=== PATIENT | male | born 1960 | race Caucasian/White ===

== ENCOUNTER 2021-07-07 10:38 | Outpatient (CLI) | payer OTHER, SELFPAY ==
[2021-07-07 10:49] LABS: Basophils Absolute Auto 0.04 K/mm3 (0.00-0.10); Basophils Percent Auto 0.7 % (0.0-1.0); Eosinophils Absolute Auto 0.31 K/mm3 (0.02-0.50); Eosinophils Percent Auto 5.7 % (1.0-6.0); Hemoglobin 15.7 g/dL (14.0-18.0); Immature Granulocyte Absolute 0.03 K/mm3 (0.00-0.00); Immature Granulocyte Percent A 0.5 % (0.0-0.0); Lymphocytes Absolute Auto 1.32 K/mm3 (1.10-4.50); Lymphocytes Percent Auto 24.1 % (18.0-42.0); Mean Corpuscular HGB Conc 33.4 g/dL (32.0-36.0); Mean Corpuscular Hemoglobin 32.2 pg (27.0-31.0); Mean Corpuscular Volume 96.3 fL (78.0-102.0); Mean Platelet Volume 10.2 fl (8.7-11.0); Monocytes Absolute Auto 0.39 K/mm3 (0.10-0.90); Monocytes Percent Auto 7.1 % (2.0-11.0); Neutrophils Absolute Auto 3.4 K/mm3 (1.7-7.2); Neutrophils Percent Auto 61.9 % (50.0-70.0); Platelet Count Result 204 K/mm3 (150-420); Red Blood Count 4.88 M/mm3 (4.70-6.10); Red Cell Distribution Width 11.9 % (11.6-14.4); White Blood Count 5.5 K/mm3 (4.8-10.8)
[2021-07-07 11:54] LABS: Alanine Aminotransferase 48 U/L (16-63); Albumin Level 4.2 g/dL (3.4-5.0); Alkaline Phosphatase 42 U/L (46-116); Anion Gap 10 mmol/L (8-16); Aspartate Amino Transferase 19 U/L (15-37); Bilirubin,Total 0.4 mg/dL (0.00-1.00); Blood Urea Nitrogen 21 mg/dL (7-18); Calcium 9.1 mg/dL (8.5-10.1); Carbon Dioxide 28 mmol/L (21-32); Chloride 107 mmol/L (98-108); Cholesterol 264 mg/dL (0-200); Estimated Glomerular Filt Rate > 60; Glucose 113 mg/dL (70-99); HDL Direct 33 mg/dL (40-60); LDL Cholesterol Calculated 165 mg/dL (<130); Osmolality Calculated 304 mOsm/kg (285-295); Potassium 4.2 mmol/L (3.5-5.1); Sodium 145 mmol/L (136-145); Total Protein 6.8 g/dL (6.4-8.2); Triglycerides 329 mg/dL (0-150)
== END 2021-07-07 10:39 | disposition home or self-care (01) ==
LOC: CHSLAB 10:41
PROVIDERS: PCP Nurse Practitioner Family; Visit Provider Nurse Practitioner Family
DX: E78.5 Hyperlipidemia, unspecified (principal)
CPT/HCPCS: 36415; 80053; 80061; 85025

== ENCOUNTER 2022-03-03 14:39 | Outpatient (CLI) | payer OTHER, SELFPAY ==
--- NOTE | ~2022-03-03 | XR_ITS ---
EXAMINATION: XR thoracic spine 3V DATE: 03/03/2022 15:04 INDICATION: Upper back pain TECHNIQUE: AP, lateral and lateral swimmer's views of the thoracic spine were obtained. COMPARISON: None. FINDINGS: Bone alignment is normal. There is no fracture. There is mild loss of intervertebral disc s pace height at multiple levels in the thoracic spine. IMPRESSION: 1. Mild thoracic spondylosis without acute findings. Reviewed, dictated and finalized at location F.
== END 2022-03-03 14:40 | disposition home or self-care (01) ==
LOC: CHSIMG 14:42
PROVIDERS: PCP Family Medicine; Visit Provider Family Medicine
DX: M54.9 Dorsalgia, unspecified (principal)
CPT/HCPCS: 72072

== ENCOUNTER 2022-03-09 14:52 | Outpatient (RCR) | payer OTHER, SELFPAY ==
--- NOTE | 2022-03-09 16:00 | PTOPEVAL ---
Thank you for referring Niranjan Gallegos to [facility].? The patient is scheduled to be seen for therapy? __2__x/week for 10 visits. Please review, sign, date and return this plan of care MIRA. I agree with and certify that the following plan of care is medically necessary. Referring Physician Date Admitting Provider: Attending Provider: Ken Dumont DO Referring Provider: *PT Outpatient Evaluation Start: 03/09/22 15:04 Freq: Status: Active Protocol: Document 03/09/22 15:05 KALLIE (Rec: 03/09/22 15:54 KALLIE [email or web address]) Therapy Assessment Status Assessment Status Assessment Status Evaluation Evaluation Information Problem Diagnosis dorsalgia, upper back pain Onset 01/31/22 Subjective Information Pt. reports that he developed Query Text:As Reported By Patient/ worsening upper back pain over Family the past month. 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 He states that pain intermittent and is located between the shoulder blades. He reports that he is able to sleep without complication. He reports that he does take Aleve daily to assist with pain. He reports that pain is worse with lifting and bending activities. Pain Assessment Pain Scale Pain Scale Used Numeric (1 - 10) Self Report Pain Assessment Upper Back Reported Pain Level 1 Pain Description Aching Lowest Pain Intensity 1 Greatest Pain Intensity 8 Pain Score Pain Score 1: Self Report Interventions Used Interventions Used By Clinicians Electrical Stimulation, Exercise,Heat Cervical and Lumbar ROM Cervical ROM Cervical Flexion (0-60) 50 Query Text:Active in Degrees Cervical Extension (0-70) 60 Query Text:Active in Degrees Cervical Lateral Flexion Right (0-50) 35 Query Text:Active in Degrees Cervical Lateral Flexion Left (0-50) 35 Query Text:Active in Degrees Cervical Rotation Right (0-90) 70 Query Text:Active in Degrees Cervical Rotation Left (0-90) 75 Query Text:Active in Degrees Upper Extremity Muscle Strength Testing General Upper Extremity Strength Gross Upper Extremity Strength Comments -right shoulder flexion 5/5 -left shoulder flexion 4/5 -right shoulder ER 5/5 -left shoulder ER 4/5 -bilateral mi
== END 2022-03-16 09:24 | disposition home or self-care (01) ==
LOC: CHSPT 14:52
PROVIDERS: PCP Family Medicine; Visit Provider Family Medicine
DX: M54.9 Dorsalgia, unspecified (principal)
CPT/HCPCS: 97014; 97110; 97161; G0283

== ENCOUNTER 2023-05-04 15:11 | Outpatient (CLI) | payer OTHER, SELFPAY ==
[2023-05-04 15:24] LABS: Basophils Absolute Auto 0.04 K/mm3 (0.00-0.10); Basophils Percent Auto 0.6 % (0.0-1.0); Eosinophils Absolute Auto 0.64 K/mm3 (0.02-0.50); Eosinophils Percent Auto 9.5 % (1.0-6.0); Hematocrit 44.6 % (40.0-54.0); Hemoglobin 15.1 g/dL (14.0-18.0); Immature Granulocyte Absolute 0.02 K/mm3 (0.00-0.00); Immature Granulocyte Percent A 0.3 % (0.0-0.0); Lymphocytes Absolute Auto 1.69 K/mm3 (1.10-4.50); Mean Corpuscular HGB Conc 33.9 g/dL (32.0-36.0); Mean Corpuscular Hemoglobin 32.4 pg (27.0-31.0); Mean Corpuscular Volume 95.7 fL (78.0-102.0); Mean Platelet Volume 10.4 fl (8.7-11.0); Monocytes Absolute Auto 0.58 K/mm3 (0.10-0.90); Monocytes Percent Auto 8.6 % (2.0-11.0); Neutrophils Absolute Auto 3.8 K/mm3 (1.7-7.2); Platelet Count Result 211 K/mm3 (150-420); Red Blood Count 4.66 M/mm3 (4.70-6.10); Red Cell Distribution Width 11.9 % (11.6-14.4); White Blood Count 6.8 K/mm3 (4.8-10.8)
[2023-05-04 15:51] LABS: Alanine Aminotransferase 37 U/L (16-63); Albumin Level 4.1 g/dL (3.4-5.0); Alkaline Phosphatase 37 U/L (46-116); Anion Gap 11 mmol/L (8-16); Aspartate Amino Transferase 22 U/L (15-37); Bilirubin,Total 0.5 mg/dL (0.00-1.00); Blood Urea Nitrogen 27 mg/dL (7-18); Calcium 9.2 mg/dL (8.5-10.1); Carbon Dioxide 26 mmol/L (21-32); Chloride 105 mmol/L (98-108); Cholesterol 263 mg/dL (0-200); Estimated Glomerular Filt Rate > 60; Glucose 102 mg/dL (70-99); HDL Direct 38 mg/dL (40-60); LDL Cholesterol Calculated 160 mg/dL (<130); Osmolality Calculated 299 mOsm/kg (285-295); Potassium 4.2 mmol/L (3.5-5.1); Sodium 142 mmol/L (136-145); Total Protein 6.7 g/dL (6.4-8.2); Triglycerides 324 mg/dL (0-150)
[2023-05-04 16:18] LABS: Occult Blood Negative (Negative)
== END 2023-05-04 15:12 | disposition home or self-care (01) ==
LOC: CHSLAB 15:13
PROVIDERS: PCP Family Medicine; Visit Provider Family Medicine
DX: R19.7 Diarrhea, unspecified (principal); E78.5 Hyperlipidemia, unspecified
CPT/HCPCS: 36415; 80053; 80061; 82272; 85025

== ENCOUNTER 2024-12-23 08:12 | Emergency (ER) | payer BC, SELFPAY ==
--- NOTE | ~2024-12-23 | XR_ITS ---
EXAMINATION: XR wrist LT w scaphoid DATE: 12/23/2024 08:35 INDICATION: Left wrist pain TECHNIQUE: Posteroanterior, ulnar deviation, oblique, and lateral views of the left wrist were obtain ed. COMPARISON: none FINDINGS: 1 mm ulnar positive variance. Bone alignment is otherwise normal. No fracture. Mild osteoarthritis at the triscaphe and first carpal metacarpal joint. There is a subtle lucency at the ulnar side of the proximal articular surface of the lunate suggesting ulnocarpal impaction. Soft tissues are unremarkab le. IMPRESSION: 1. 1 mm ulnar positive variance with cystic change along the proximal articular surface of the lunate suggestive of ulnocarpal impaction. 2. Mild osteoarthritis at the triscaphe and first carpal metacarpal joint. Reviewed, dictated and finalized at location A. D PREVENTION ANALYST
--- OUTSIDE RECORDS SUMMARY | 2024-12-23 08:16 | XMS_ITS | Clinical Summary ---
Author Organization [facility] Address [address] [place] [id number] Care Team Providers Care Shareholder Name Role Phone Unavailable Primary Care Provider Unavailabl e Social History Tobacco Use Types Packs/Day Years Used Date Smoking Tobacco: Never Sex and Gender Information Value Date Recorded Sex Assigned at Not on file Legal Sex Male 6:51 PM CDT Gender Identity Not on file Sexual Orientation Not on file Last Filed Vital Signs Vital Sign Reading Time Taken Comments Blood Pressure 120/74 01/17/2015 1:45 PM AED TRAINER Pulse 80 01/17/2015 1:44 PM AED TRAINER Temperature - - Respiratory Rate 18 01/17/2015 1:44 PM AED TRAINER Oxygen Saturation - - Inhaled Oxygen Concentration - - Weight 80.7 kg (178 lb) 01/17/2015 1:44 PM AED TRAINER Height 167.6 cm (5' 6 ) 01/17/2015 1:44 PM AED TRAINER Body Mass Index 28.73 01/17/2015 1:44 PM AED TRAINER Plan of Treatment Health Maintenance Due Date Last Done Comments Colorectal Cancer Screening Colonoscopy (10 Years) 1959 Hepatitis C 1977 DTaP, Tdap and Td Vaccines ( 1 - Tdap) 1978 Zoster Vaccines (1 of 2) 2009 Pneumococcal Vaccine: 65+ Ye ars (1 of 1 - PCV) 2024 COVID-19 Vaccine ( - 2023-2 5 season) 2024 Influenza Adult (#1) 2024 RSV Immunization or 60+ Years (1 - 1-dose 75+ series) 2034 Meningococcal B Vaccine Aged Out No l onger eligible based on patient's age to complete this topic Meningococcal Vaccine Aged Out No kiara brett eligible based on patient's age to complete this topic Pneumococcal Vaccine: Pediat rics (0 to 5 Years) and At-Risk Patients (6 to 64 Years) Aged Out No longer eligible b ased on patient's age to complete this topic RSV Immunizations Under 20 Months Aged Out No longer eligible based on patient's age to complete this topic
[2024-12-23 08:18] VITALS: BP 147/90; PULSE 74; RESP 18; TEMP 36; O2SAT 98
--- NOTE | 2024-12-23 08:23 | ED_ITS ---
HPI - General Adult General Chief complaint: Extremity Injury, Upper Stated complaint: upper extremity injury Time Seen by Provider: 12/23/24 08:21 History of Present Illness HPI narrative: Niranjan is a 64M with a PMH of SONYA, and HLD that presented to the ED with pain in his left wirst. He has had it for weeks but it became worse last night folding clothes. No fall, injury or trauma. Related Data Allergies Allergy/AdvReac Type Severity Reaction Status Date / Time No Known Allergies Allergy Verified 05/04/23 14:53 Review of Systems 2 Review of Systems: All systems reviewed & are unremarkable except as noted in HPI and below PMFSH Surgical History Surgical History H/O shoulder surgery right History of hip surgery right Previous back surgery fusion in lower back Family History Family History Mother Patient's mother is in good health Grandparent Acute myocardial infarction, Onset Age: 72 Family history of malignant neoplasm Father Family history of lung cancer Family history of malignant neoplasm of urinary bladder Family history of congestive heart failure Social History Social History Smoking status: Former smoker Alcohol intake: current Alcohol use details: social Substance use: never Substance use type: does not use Lack of Transportation: No Lack of Food: Never True Current Housing: I Have Housing Concerned About Future Housing: No Difficulty Paying Gas/Electric Bills: No Difficulty Paying for Meds: No Currently Unemployed: No Education: High School Diploma/GED Difficulty w/ Childcare or Family Care: No Living arrangements: with family Additional living arrangements comments: Occupation/Education: occupation 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 Gender identity (if verbalized by the patient): Male Exam 2 Const: General: cooperative, healthy appearing, comfortable, no acute distress, well developed, alert, awake and Physically active O rientation/consciousness: oriented to person, oriented to place and oriented to time HENMT: Head: normal to inspection, normocephalic and atraumatic Ears: h earing grossly normal bilaterally and external ears normal Face/Nose/Sinus: N ormal external nose present Eyes: General: appearance normal, both eyes and all related structures P eriorbital: periorbital findings normal Sclera: sclerae normal Pupils: E qual, round and reactive pupils present Neck: Neck: normal visual inspection Chest: Chest palpation & inspection: normal inspection of the chest Resp: Effort & Inspection: normal respiratory effort, able to speak in complete sentences and no respiratory distress Skin: General skin exam: normal color and no rashes or lesions noted Neuro: General: oriented to person, oriented to place and oriented to time Cranial nerves: Yes Equal, round and reactive pupils present Extrem: General: normal to inspection Other: decreased ROM in the left wrist and TTP Course Course Emergency Course: EXAMINATION: XR wrist LT w scaphoid DATE: 12/23/2024 08:35 INDICATION: Left wrist pain TECHNIQUE: Posteroanterior, ulnar deviation, oblique, and lateral views of the left wrist were obtained. COMPARISON: none FINDINGS: 1 mm ulnar positive variance. Bone alignment is otherwise normal. No fracture. Mild osteoarthritis at the triscaphe and first carpal metacarpal joint. There is a subtle lucency at the ulnar side of the proximal articular surface of the lunate suggesting ulnocarpal impaction. Soft tissues are unremarkable. IMPRESSION: 1. 1 mm ulnar positive variance with cystic change along the proximal articular surface of the lunate suggestive of ulnocarpal impaction. 2. Mild osteoarthritis at the triscaphe and first carpal metacarpal joint. Pain improved with Toradol. he was placed Vital Signs Vital signs: Vital Signs Temperature 96.8 F L 12/23/24 08:18 Pulse Rate 74 12/23/24 08:18 Respiratory Rate 18 12/23/24 08:18 Blood Pressure 147/90 H 12/23/24 08:18 Pulse Oximetry 98 12/23/24 08:18 Oxygen Delivery Room Air 12/23/24 08:18 Temperature 96.8 F L 12/23/24 08:18 Pulse Rate 74 12/23/24 08:18 Respiratory Rate 18 12/23/24 08:18 Blood Pressure 147/90 H 12/23/24 08:18 Pulse Oximetry 98 12/23/24 08:18 Oxygen Delivery Room Air 12/23/24 08:18 Medical Decision Making Vital Signs Vital Signs: Vital Signs Temperature 96.8 F L 12/23/24 08:18 Pulse Rate 74 12/23/24 08:18 Respiratory Rate 18 12/23/24 08:18 Blood Pressure 147/90 H 12/23/24 08:18 Pulse Oximetry 98 12/23/24 08:18 Oxygen Delivery Room Air 12/23/24 08:18 Temperature 96.8 F L 12/23/24 08:18 Pulse Rate 74 12/23/24 08:18 Respiratory Rate 18 12/23/24 08:18 Blood Pressure 147/90 H 12/23/24 08:18 Pulse Oximetry 98 12/23/24 08:18 Oxygen Delivery Room Air 12/23/24 08:18 Lab Data 12/23/24 09:07 12/23/24 09:07 Labs: Lab Results 12/23/24 Range/Units 09:07 WBC 4.6 L (4.8-10.8) K/mm3 RBC 4.69 L (4.70-6.10) M/mm3 Hgb 15.0 (12.4-15.3) g/dL Hct 45.3 (37.0-46.0) % MCV 96.6 (78.0-102.0) fL MCH 32.0 H (27.0-31.0) pg MCHC 33.1 (32-36) g/dL RDW 11.9 (11.6-14.4) % Plt Count 200 (150-420) K/mm3 MPV 10.4 (8.7-11.0) fl Sodium 141 (136-145) mmol/L Potassium 4.0 (3.5-5.1) mmol/L Chloride 106 (98-108) mmol/L Carbon Dioxide 29 (21-32) mmol/L Anion Gap 6 (4-12) mmol/L BUN 17 (7-18) mg/dL Creatinine 0.87 (0.70-1.30) mg/dL Estim Creat Clear Calc 75 ml/min Estimated GFR > 60 (59 - ) Glucose 115 H (70-99) mg/dL Calculated Osmolality 294 (285-295) mOsm/kg Uric Acid 5.8 (3.5-7.2) mg/dL Calcium 8.7 (8.5-10.1) mg/dL Total Bilirubin 0.5 (0.00-1.00) mg/dL AST 15 (15-37) U/L ALT 35 (16-63) U/L Alkaline Phosphatase 39 L (46-116) U/L C-Reactive Protein < 0.5 (0.0-0.9) mg/dL Total Protein 6.6 (6.4-8.2) g/dL Albumin 3.8 (3.4-5.0) g/dL Discharge Plan Discharge Clinical Impression: Acute pain of left wrist Patient Disposition: Home, Self-Care Condition: Stable Instructions: Splint Care (ED) Patient Language: Moldovan Prescriptions: New meloxicam 15 mg tablet 15 mg PO DAILY Qty: 10 0RF No Action cyclobenzaprine 10 mg tablet 10 mg PO TID PRN (Reason: muscle spasm) Qty: 30 0RF tadalafil 10 mg tablet 10 mg PO DAILY PRN (Reason: sexual activity) Qty: 30 0RF Rx Instructions: administer approximately 30min before sexual activity; If no effect with 1 tab take 2. Do not take more than 2 tabs in 24 hours. atorvastatin 40 mg tablet See Rx Instructions .ROUTE .COMPLEX Qty: 90 0RF Dose Instruction: TAKE ONE TABLET BY MOUTH DAILY Rx Instructions: TAKE ONE TABLET BY MOUTH DAILY atorvastatin 20 mg tablet See Rx Instructions .ROUTE .COMPLEX Qty: 90 0RF Dose Instruction: TAKE ONE TABLET BY MOUTH AT BEDTIME Rx Instructions: TAKE ONE TABLET BY MOUTH AT BEDTIME ezetimibe 10 mg tablet See Rx Instructions .ROUTE .COMPLEX Qty: 90 0RF Dose Instruction: TAKE ONE TABLET BY MOUTH DAILY Rx Instructions: TAKE ONE TABLET BY MOUTH DAILY Follow-up/Referrals: Ken Dumont DO [Primary Care Provider] - Stand Alone Forms: Work/School Release IP
[2024-12-23] MEDS: KETOROLAC 30 MG/ML VIAL (*BKC) IM (08:50)
--- OUTSIDE RECORDS SUMMARY | 2024-12-23 09:05 | XMS_ITS | Clinical Summary ---
Author Organization [facility] Address [address] [place] [id number] Care Team Providers Care Train Operations Manager Name Role Phone Unavailable Primary Care Provider [...] Comments Blood Pressure 120/74 01/17/2015 1:45 PM BAIT MAN Pulse 80 01/17/2015 1:44 PM BAIT MAN Temperature - - Respiratory Rate 18 01/17/2015 1:44 PM BAIT MAN Oxygen Saturation - - Inhaled Oxygen Concentration - - Weight 80.7 kg (178 lb) 01/17/2015 1:44 PM BAIT MAN Height 167.6 cm (5' 6 ) 01/17/2015 1:44 PM BAIT MAN Body Mass Index 28.73 01/17/2015 1:44 PM BAIT MAN Plan of Treatment Health Maintenance Due Date [...]
[2024-12-23 09:18] LABS: Hematocrit 45.3 % (37.0-46.0); Mean Corpuscular HGB Conc 33.1 g/dL (32-36); Mean Corpuscular Volume 96.6 fL (78.0-102.0); Mean Platelet Volume 10.4 fl (8.7-11.0); Platelet Count Result 200 K/mm3 (150-420); Red Blood Count 4.69 M/mm3 (4.70-6.10); Red Cell Distribution Width 11.9 % (11.6-14.4); White Blood Count 4.6 K/mm3 (4.8-10.8)
[2024-12-23 09:31] LABS: Alanine Aminotransferase 35 U/L (16-63); Albumin Level 3.8 g/dL (3.4-5.0); Alkaline Phosphatase 39 U/L (46-116); Anion Gap 6 mmol/L (4-12); Aspartate Amino Transferase 15 U/L (15-37); Bilirubin,Total 0.5 mg/dL (0.00-1.00); Blood Urea Nitrogen 17 mg/dL (7-18); Calcium 8.7 mg/dL (8.5-10.1); Carbon Dioxide 29 mmol/L (21-32); Chloride 106 mmol/L (98-108); Estimated CRCL calculation 75 ml/min; Estimated Glomerular Filt Rate > 60; Glucose 115 mg/dL (70-99); Osmolality Calculated 294 mOsm/kg (285-295); Sodium 141 mmol/L (136-145); Total Protein 6.6 g/dL (6.4-8.2); Uric Acid 5.8 mg/dL (3.5-7.2)
[2024-12-23 09:32] LABS: CRP < 0.5 mg/dL (0.0-0.9)
[2024-12-23 10:13] VITALS: BP 142/88; PULSE 64; RESP 18; TEMP 36.4; O2SAT 97
== END 2024-12-23 10:20 | disposition home or self-care (01) ==
PROVIDERS: Emergency Provider Family Medicine; PCP Family Medicine
DX: M25.532 Pain in left wrist (principal); G47.33 Obstructive sleep apnea (adult) (pediatric); E78.5 Hyperlipidemia, unspecified
CPT/HCPCS: 29125; 36415; 73110; 80053; 84550; 85027; 86140; 96372; 99284; J1885

== ENCOUNTER 2024-12-31 07:35 | Outpatient (CLI) | payer BC, SELFPAY ==
--- OUTSIDE RECORDS SUMMARY | 2024-12-31 07:37 | XMS_ITS | Clinical Summary ---
Author Organization [facility] Address [address] [place] [id number] Care Team Providers Care Block Placer Name Role Phone Unavailable Primary Care Provider [...] Comments Blood Pressure 120/74 01/17/2015 1:45 PM MICROWAVE TECHNICIAN Pulse 80 01/17/2015 1:44 PM MICROWAVE TECHNICIAN Temperature - - Respiratory Rate 18 01/17/2015 1:44 PM MICROWAVE TECHNICIAN Oxygen Saturation - - Inhaled Oxygen Concentration - - Weight 80.7 kg (178 lb) 01/17/2015 1:44 PM MICROWAVE TECHNICIAN Height 167.6 cm (5' 6 ) 01/17/2015 1:44 PM MICROWAVE TECHNICIAN Body Mass Index 28.73 01/17/2015 1:44 PM MICROWAVE TECHNICIAN Plan of Treatment Health Maintenance Due Date [...]
[2024-12-31 08:17] LABS: Cholesterol 302 mg/dL (0-200); HDL Direct 37 mg/dL (40-60)
[2024-12-31 08:20] LABS: LDL Cholesterol Calculated 166 mg/dL (<130); Triglycerides 494 mg/dL (0-150)
[2024-12-31 08:21] LABS: LDL Cholesterol Direct 157 mg/dL (0-130)
== END 2024-12-31 07:36 | disposition home or self-care (01) ==
LOC: CHSLAB 07:36
PROVIDERS: PCP Family Medicine; Visit Provider Family Medicine
DX: E78.5 Hyperlipidemia, unspecified (principal)
CPT/HCPCS: 36415; 80061; 83721

== ENCOUNTER 2025-02-05 08:53 | Outpatient (CLI) | payer BC, SELFPAY ==
--- NOTE | 2025-02-05 09:30 | NEURO_ITS ---
Impression: #Non diabetic person planes numbness and weakness of the hand. ? # moderate left carpal tunnel syndrome. ? 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 ? # Normal needle exam. Nerve Conduction Studies Anti Sensory Summary Table ?Stim Site NR Peak (ms) P-T Amp (?V) Site1 Site2 Delta-P (ms) Dist (cm) Nirav (m/s) Left Median Anti Sensory (2-3nd Digit) Wrist ? 5.4 15.4 Wrist 2-3nd Digit 5.4 14.0 26 Wrist ? 5.2 12.8 Wrist 2-3nd Digit 5.4 14.0 26 Left Radial Anti Sensory (Base 1st Digit) Wrist ? 1.9 17.7 Wrist Base 1st Digit 1.9 0.0 Left Ulnar Anti Sensory (5th Digit) Wrist ? 2.7 32.7 Wrist 5th Digit 2.7 14.0 52 Motor Summary Table ?Stim Site NR Onset (ms) O-P Amp (mV) Site1 Site2 Delta-0 (ms) Dist (cm) Nirav (m/s) Left Median Motor (Abd Poll Brev) Wrist ? 5.6 2.9 Elbow Wrist 5.1 30.0 59 Elbow ? 10.7 4.4 Left Ulnar Motor (Abd Dig Minimi) Wrist ? 2.5 8.5 A Elbow Wrist 6.1 30.0 49 A Elbow ? 8.6 7.8 B Elbow Wrist 3.9 24.0 62 B Elbow ? 6.4 6.5 F Wave Studies ?NR F-Lat (ms) L-R F-Lat (ms) Left Median (Mrkrs) (Abd Poll Brev) ? 33.13 Left Ulnar (Mrkrs) (Abd Dig Min) ? 31.59 EMG ?Side Muscle Nerve Root Ins Act Fibs Amp Dur Recrt Comment Left 1stDorInt Ulnar C8-T1 Nml Nml Nml Nml Nml Left Ext Indicis Radial (Post Int) C7-8 Nml Nml Nml Nml Nml Left Ext Digitorum Radial (Post Int) C7-8 Nml Nml Nml Nml Nml Left BrachioRad Radial C5-6 Nml Nml Nml Nml Nml Left PronatorTeres Median C6-7 Nml Nml Nml Nml Nml Left Abd Poll Brev Median C8-T1 Nml Nml Nml Nml Nml Left ABD Dig Min Ulnar C8-T1 Nml Nml Nml Nml Nml Right FlexPolLong Median (Ant Int) C7-8 Nml Nml Nml Nml Nml Right Abd Poll Long Radial (Post Int) C7-8 Nml Nml Nml Nml Nml MTDD
--- OUTSIDE RECORDS SUMMARY | 2025-02-05 09:35 | XMS_ITS | Clinical Summary ---
Author Organization [facility] Address [address] [place] [address] Care Team Providers Care Nitroglycerin Supervisor Name Role Phone Unavailable Primary Care Provider [...] Comments Blood Pressure 120/74 01/17/2015 1:45 PM LIVE TRUCK TECHNICIAN Pulse 80 01/17/2015 1:44 PM LIVE TRUCK TECHNICIAN Temperature - - Respiratory Rate 18 01/17/2015 1:44 PM LIVE TRUCK TECHNICIAN Oxygen Saturation - - Inhaled Oxygen Concentration - - Weight 80.7 kg (178 lb) 01/17/2015 1:44 PM LIVE TRUCK TECHNICIAN Height 167.6 cm (5' 6 ) 01/17/2015 1:44 PM LIVE TRUCK TECHNICIAN Body Mass Index 28.73 01/17/2015 1:44 PM LIVE TRUCK TECHNICIAN Plan of Treatment Health Maintenance Due [...]
== END 2025-02-05 08:54 | disposition home or self-care (01) ==
PROVIDERS: Visit Provider Plastic Surgery
DX: G56.02 Carpal tunnel syndrome, left upper limb (principal); G56.22 Lesion of ulnar nerve, left upper limb
CPT/HCPCS: 95886; 95909

== ENCOUNTER 2025-02-14 10:12 | Outpatient (CLI) | payer BC, SELFPAY ==
--- NOTE | ~2025-02-14 | MR_ITS ---
EXAMINATION: MR wrist LT wo/w con DATE: 02/14/2025 11:41 INDICATION: Left wrist sprain with lesion at the ulnar nerve, synovitis and tenosynovitis in the left forearm. TECHNIQUE: Magnetic resonance imaging (MRI) of the left wrist was performed without and with 19 mL Pr oHance intravenous contrast. Sequences performed include axial PD-weighted FSE and PD-weighted FS FSE , coronal PD-weighted FS FSE and T1-weighted SE, sagittal PD-weighted FS FSE and PD-weighted FSE and postcontrast axial, sagittal and coronal T1-weighted FS FSE. COMPARISON: None FINDINGS: Intrinsic ligaments: The scapholunate and lunotriquetral ligaments are normal. Triangular fibrocartilage complex (TFCC): There is a central tear of the radial side of the fibrocartilaginous disc of the triangular fibrocart ilage complex. The dorsal and volar radial ulnar ligaments along with the foveal and ulnar styloid at tachments are normal. The ulnar collateral ligament, ulnotriquetral ligament and meniscal homologue a re normal. The extensor carpi ulnaris tendon sheath is normal. Extensor wrist: Extensor tendons of the wrist are normal. No tenosynovitis. Flexor wrist: The flexor tendons of the wrist are normal. No abnormality in the carpal tunnel with normal median n erve. Guyon's canal: Guyon's canal including the ulnar nerve and artery are normal. Bones/other: Negligible ulnar positive variance. Alignment is otherwise normal. There is subarticular cystic borjas e at the volar/ulnar side of the proximal articular surface of the lunate immediately adjacent to the tear of the triangular fibrocartilage and suggest sequela ulnocarpal impaction. No fracture, enhanci ng erosions or pathologic marrow replacing process. Mild osteoarthritis at the distal radioulnar, mid carpal, triscaphe and first carpal metacarpal joints. Likely secondary tiny subarticular cystlike jillian nges at the midcarpal joint along the proximal hamate, capitate and distal margin of the lunate. No j oint effusions, ganglion cysts, tenosynovitis/tenosynovial fluid or other abnormal fluid collections. IMPRESSION: 1. Tear at the radial side of the central fibrocartilaginous disc of the triangular fibrocartilage co mplex with juxtaposed reticular cystic change at the lunate and minimal ulnar positive variance all f indings suggesting ulnocarpal impaction. 2. Mild polyarticular osteoarthritis at the distal radioulnar, midcarpal, triscaphe and first carpal metacarpal joints. Reviewed, dictated and finalized at location A. IMPRESSION: 1. Tear at the radial side of the central fibrocartilaginous disc of the triang ular fibrocartilage complex with juxtaposed reticular cystic change at the hailey te and minimal ulnar positive variance all findings suggesting ulnocarpal impac tion. 2. Mild polyarticular osteoarthritis at the distal radioulnar, midcarpal, trisc aphe and first carpal metacarpal joints.
--- OUTSIDE RECORDS SUMMARY | 2025-02-14 10:59 | XMS_ITS | Clinical Summary ---
Author Organization [facility] Address [address] [place] [id number] Care Team Providers Care Warm In Name Role Phone Unavailable Primary Care Provider [...] Comments Blood Pressure 120/74 01/17/2015 1:45 PM AUTO SELF SERVICE STATION ATTENDANT Pulse 80 01/17/2015 1:44 PM AUTO SELF SERVICE STATION ATTENDANT Temperature - - Respiratory Rate 18 01/17/2015 1:44 PM AUTO SELF SERVICE STATION ATTENDANT Oxygen Saturation - - Inhaled Oxygen Concentration - - Weight 80.7 kg (178 lb) 01/17/2015 1:44 PM AUTO SELF SERVICE STATION ATTENDANT Height 167.6 cm (5' 6 ) 01/17/2015 1:44 PM AUTO SELF SERVICE STATION ATTENDANT Body Mass Index 28.73 01/17/2015 1:44 PM AUTO SELF SERVICE STATION ATTENDANT Plan of Treatment Health Maintenance Due Date [...]
== END 2025-02-14 10:13 | disposition home or self-care (01) ==
PROVIDERS: PCP Family Medicine; Visit Provider Plastic Surgery
DX: S63.592A Other specified sprain of left wrist, initial encounter (principal); X58.XXXA Exposure to other specified factors, initial encounter; G56.20 Lesion of ulnar nerve, unspecified upper limb; M65.932 Unspecified synovitis and tenosynovitis, left forearm
CPT/HCPCS: 73223; A9579

== ENCOUNTER 2025-05-15 00:24 | Day surgery (SDC) | payer BC, SELFPAY ==
[2025-05-10 13:07] VITALS: BMI 33.5
--- NOTE | 2025-05-10 13:25 | PC.NURSE ---
Report to the Outpatient Waiting Room, entrance under the green pavilion located off [facility], at time __11:30am on date _05/15/25 . Planned Procedure Time: __1:30pm .? Time changes happen often and if your time is changed the preop area will call you the afternoon before. - You and your visitor will be asked to self-screen and do not enter if you have any COVID symptoms. Please call surgeon if you need to reschedule. - A mask is optional within the hospital at this time. Patients may have No food or drink from midnight until time of surgery and no smoking, or chewing tobacco (or any form of nicotine). No chewing gum, candy or mints. Take only the following medications with a SIP of water on the morning of surgery: Tylenol if needed DO NOT STOP ANY OF YOUR OTHER PRESCRIPTION MEDICATIONS PRIOR TO SURGERY EXCEPT THE FOLLOWING Hold all vitamins and supplements for 3 days per anesthesiologist. Medications to discontinue per physician None Date to take last dose None Please no make-up, nail romanian, hairspray, perfume, deodorant, or body powder the day of surgery.? No jewelry (including any body piercings) or valuables the day of surgery, leave them at home.? Please take a shower or bath the night before, or the morning of, surgery with an antibacterial soap.? Wear comfortable, loose fitting clothing.? - Jewelry must be removed prior to entering the operating room.? Rings and piercings that are not removed may be cut off. - The hospital will not accept responsibility for valuables.? - Please leave all valuables, including medications, at home the day of surgery. If you are going home after surgery, a licensed dedicated truck driver must drive you home.? - NO public transportation without another adult if you receive anesthesia. - We recommend that an adult stay with you for 24 hours following discharge. - We also recommend that you do not drive, make important decision, drink alcoholic beverages, or take any drugs that were not prescribed by your health care provider for at least 24 hours after your discharge time. Follow any additional instructions given to you from your surgeon. Telephone instructions given to ___Patient and asked if any additional questions and then verbalized understanding. Patient advised to call surgeon office or pre surgery nurse liaison [phone] if any additional questions.
--- OUTSIDE RECORDS SUMMARY | 2025-05-15 00:27 | XMS_ITS | Clinical Summary ---
Author Organization [facility] Address [address] [place] [address] Care Team Providers Care Machine Welder Name Role Phone Unavailable Primary Care Provider [...] Comments Blood Pressure 120/74 01/17/2015 1:45 PM MAT MACHINE TENDER Pulse 80 01/17/2015 1:44 PM MAT MACHINE TENDER Temperature - - Respiratory Rate 18 01/17/2015 1:44 PM MAT MACHINE TENDER Oxygen Saturation - - Inhaled Oxygen Concentration - - Weight 80.7 kg (178 lb) 01/17/2015 1:44 PM MAT MACHINE TENDER Height 167.6 cm (5' 6) 01/17/2015 1:44 PM MAT MACHINE TENDER Body Mass Index 28.73 01/17/2015 1:44 PM MAT MACHINE TENDER Plan of Treatment Health Maintenance Due Date Last Done Comments Colorectal Cancer Screening Colonoscopy (10 Years) 1959 Hepatitis C 1977 DTaP, Tdap and Td Vaccines ( 1 - Tdap) 1978 Pneumococcal Vaccine: 50+ Ye ars (1 of 1 - PCV) 2009 Zoster Vaccines (1 of 2) 2009 COVID-19 Vaccine ( - 2023-2 5 season) 2024 RSV Immunization or 60+ Years (1 [...]
--- NOTE | 2025-05-15 07:06 | PM.HPGS ---
History of Present Illness History of Present Illness Chief complaint: left carpal & cubital tunnel syndrome Narrative: Patient seen and examined in pre-operative holding area. No interval change in medical history or symptoms. Patient recalls previous discussion of benefits and alternatives to procedure. Continues to desire to proceed with left endoscopic possible open carpal tunnel release, left cubital tunnel release, left posterior interosseous neurectomy and left ulnocarpal steroid injection. Reviewed procedure, post-op expectations and risks including but not limited to bleeding, infection, injury to tendon/nerve/vessel, decreased hand function, stiffness, RSD, no change or worsening of symptoms. I discussed the possible use of assistants and their participation in the case. Patient stated understanding and signed the consent form wishing to proceed. Review of Systems Review of Systems: All systems reviewed & are unremarkable except as noted in HPI and below PMFSH Surgical History Surgical History H/O shoulder surgery right History of hip surgery right Previous back surgery fusion in lower back Family History Family History Mother Patient's mother is in good health Grandparent Acute myocardial infarction, Onset Age: 72 Family history of malignant neoplasm Father Family history of lung cancer Family history of malignant neoplasm of urinary bladder Family history of congestive heart failure Social History Social History Years smoked: 20 Smoking status: Former smoker Tobacco type: cigars Smoking end date: 11/14/96 Additional smoking assessment comments: quit cigars 11/14/2012 Alcohol intake: current Drinks per week: 21 Alcohol use details: social Substance use: never Substance use type: does not use Lack of Transportation: No Lack of Food: Never True Current Housing: I Have Housing Concerned About Future Housing: No Difficulty Paying Gas/Electric Bills: No Difficulty Paying for Meds: No Currently Unemployed: No Education: High School Diploma/GED Difficulty w/ Childcare or Family Care: No Living arrangements: with family Additional living arrangements comments: Occupation/Education: occupation 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 Gender identity (if verbalized by the patient): Male Spiritual care concerns: No Meds Home Medications and Allergies Home Medications ?Medication ?Instructions ?Recorded ?Confirmed ?Type atorvastatin 40 mg tablet (Lipitor) 40 mg PO DAILY #90 tabs 12/31/24 05/10/25 Rx Allergies Allergy/AdvReac Type Severity Reaction Status Date / Time No Known Allergies Allergy Verified 05/10/25 13:05 Exam Narrative: unchanged Assessment and Plan Assessment and plan (1) Left carpal tunnel syndrome: Code(s): G56.02 - Carpal tunnel syndrome, left upper limb Status: Acute Assessment and Plan: cont as above (2) Entrapment of left ulnar nerve at elbow: Code(s): G56.22 - Lesion of ulnar nerve, left upper limb Status: Acute (3) Left wrist pain: Code(s): M25.532 - Pain in left wrist Status: Acute (4) Sprain of left wrist: Qualifiers: Encounter type: initial encounter Qualified Code(s): S63.502A - Unspecified sprain of left wrist, initial encounter Code(s): S63.502A - Unspecified sprain of left wrist, initial encounter Status: Acute
--- NOTE | 2025-05-15 07:07 | W.PM.PROC2 ---
Procedure Note - Detailed Date of Procedure 05/15/25 Pre-op Diagnosis left carpal & cubital tunnel syndrome and left wrist pain Post-op Diagnosis Same Procedure Performed left ectr., left CuTR, left PIN neurectomy and left ulnocarpal steroid injection Surgeon Kimberly Rodrigues MD Aviation Consultant ellyn taylor pa-c Anesthesia MAC Description of Procedure INFORMED CONSENT: The patient was seen and examined and marked in the pre-op area.? The patient signed the consent form. PROCEDURE IN DETAIL:The patient taken back to OR on the stretcher in supine position. Time out performed with anesthesia, surgeon and staff agreeing on patient's name site and surgery to be performed SCDs were placed on the lower extremities and inflated. A tourniquet was placed on {left} upper extremity and antibiotics given IV After anesthesia administered sedation I injected {10}cc 1%lido with epi and 0.5% marcaine plain at the operative sites The?{left upper extremity}?was prepped and draped in sterile fashion the??{left upper extremity} was? exsanguinated with Esmarch bandage and tourniquet inflated to 250mmHg I made a transverse incision in the {left} volar distal wrist crease through skin and dermis with 15 blade scalpel.? Littler scissors spread down to antebrachial fascia. A small incision was made in antebrachial fascia allowing access to Carpal tunnel. I proceeded with sequential dilation staying in line with the ring finger and hugging the hook of the hamate.? I then used the synovial elevator to free any adhesions from the underside of the transverse carpal ligament. Next I was able to insert the Microaire endoscopic carpal tunnel device with direct visualization of the transverse fibers on the monitor and proceeded with complete segmental retrograde release of the ligament in its entirety.? I irrigated with normal saline and closed with 4-0 monocryl for dermis and subcuticular closure. I next proceeded with making a longitudinal incision between two heads of the flexor carpi ulnaris at end of {left} cubital tunnel with 15 blade scalpel.? Littler scissors were used to spread down to FCU fascia.? An incision was made in FCU fascia and ulnar nerve identified exiting cubital tunnel.? I proceeded with complete retrograde release of the cubital tunnel including 7cm proximal for the intermuscular septum.? The nerve appeared healthy with visible vaso nervorum.? There was no subluxation on full elbow range of motion. ? I irrigated with normal saline and closure with 4-0 monocryl for dermis and subcuticular. Next I proceeded with making a longitudinal incision over the left dorsal wrist just ulnar to Piotr's tubercle through skin and dermis with a 15 blade scalpel. Littler scissors were used to spread through subcutaneous tissue down to the extensor retinaculum. I made an incision on a portion of the retinaculum on its radial aspect allowing access to the 4th extensor compartment. I retracted the extensor tendons ulnarly. Identified the posterior interosseous nerve on the radial side of this floor and I proceeded with using Littler scissors to dissect the nerve and then bipolar cautery was used to transect the nerve distally as well as traction cautery 2 cm proximal to resect this section of nerve. I irrigated with normal saline. The extensor retinaculum was repaired with 4-0 Vicryl. 4-0 Vicryl was used for dermis. 4-0 Monocryl for subcuticular closure. Next I injected 0.3cc 1%lidocaine plain and 0.7cc Betamethasone 6mg/ml injected into the left ulnocarpal joint The incisions were covered with Dermabond then 4x4s, pancho, and a posterior elbow and volar wrist splint for patient safety, security and comfort and secured with mayi bandages after the tourniquet was let down noting the hand was warm and well perfused.? Patient awaken from anesthesia and transferred to recovery in stable condition Complications - none EBL- 1cc Disposition - home in stable condition Ellyn Taylor PA-C was essential for positioning, retraction, closure and dressing placement [facility] [place] B[place] Surgery - Charge Forward: Surgery Billing ([id number] same for ellyn velázquez )
[2025-05-15 10:56] VITALS: BP 138/88; PULSE 77; RESP 20; TEMP 36.7; O2SAT 97
[2025-05-15] MEDS: LACTATED RINGERS 1,000 ML 30 ML IV CONT (11:25)
--- NOTE | 2025-05-15 11:38 | P.PNAN_ITS ---
Anes - Initial Pre Proc Eval Procedure: Operation Date: 05/15/25 13:00 Proposed Procedures p Left Endoscopic Carpal Tunnel Release, Possible Open, Left Cubital Tunnel Release, Left Posterior Interosseous Nerve Neurectomy, Left Ulnar Carpal Steroid Injection - Kimberly Rodrigues MD Date/Time: 05/15/25 11:38 Surgeon: Kimberly Rodrigues MD Pre Op Diagnosis: left carpal & cubital tunnel syndrome Patient Data Age: 65 Gender: M Height: 1.65 m Weight: 91.5 kg Allergies Allergy/AdvReac Type Severity Reaction Status Date / Time No Known Allergies Allergy Verified 05/10/25 13:05 Home Medications ?Medication ?Instructions ?Recorded ?Confirmed ?Type atorvastatin 40 mg tablet (Lipitor) 40 mg PO DAILY #90 tabs 12/31/24 05/10/25 Rx tramadol 50 mg tablet 50 mg PO Q6H PRN pain #12 tabs 05/15/25 Rx Patient hx anesthesia problems: none Family hx anesthesia problems: none Results Review: All pre-operative results and documents have been reviewed as part of the pre- operative evaluation. [facility] Past Medical History Medical History (Updated 05/15/25 @ 11:39 by Jordan Shanks MD) Dyslipidemia SONYA (obstructive sleep apnea) Surgical History Surgical History H/O shoulder surgery right History of hip surgery right Previous back surgery fusion in lower back Family History Family History Mother Patient's mother is in good health Grandparent Acute myocardial infarction, Onset Age: 72 Family history of malignant neoplasm Father Family history of lung cancer Family history of malignant neoplasm of urinary bladder Family history of congestive heart failure Social History Social History Years smoked: 20 Smoking status: Former smoker Tobacco type: cigars Smoking end date: 11/14/96 Additional smoking assessment comments: quit cigars 11/14/2012 Alcohol intake: current Drinks per week: 21 Alcohol use details: social Substance use: never Substance use type: does not use Lack of Transportation: No Lack of Food: Never True Current Housing: I Have Housing Concerned About Future Housing: No Difficulty Paying Gas/Electric Bills: No Difficulty Paying for Meds: No Currently Unemployed: No Education: High School Diploma/GED Difficulty w/ Childcare or Family Care: No Living arrangements: with family Additional living arrangements comments: Occupation/Education: occupation 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 Informed Consent: The patient's anesthetic plan and its attendant risks and benefits were discussed with the patient/family/POA. Questions were solicited and answers provided to the satisfaction of the patient/family/POA.
[2025-05-15] MEDS: ceFAZolin 2 GM/D5W 50 ML 2 GM/50 ML BAG IVPB (12:56)
[2025-05-15] MEDS: BETAMETHASONE SOD PHOS/ACETATE 30 MG/5 ML VIAL 4.2 MG IM (12:56)
[2025-05-15] MEDS: LIDOCAINE 1% LOCAL INJ 10 ML VIAL INFILTRATE (12:56)
[2025-05-15] MEDS: LIDO 1%/EPINEPHRINE 1:100,000 50 ML VIAL 10 ML INFILTRATE (12:56)
[2025-05-15] MEDS: BUPivacaine HCL 0.5% 10 ML AMP INFILTRATE (12:56)
--- NOTE | 2025-05-15 13:27 | S_PTH ---
PATIENT: Niranjan Gallegos LOC: [facility] U#:[id number] AGE/SX: 65/M ROOM: RE05/15/[address]: Kimberly Rodrigues MD : 1960 BED: DIS: 05/15/2025 SPEC #: [id number] RECD: 05/15/25 14:22 STATUS: PEDRO REQ #: [id number] SARAI: 05/15/25 13:[address]: Kimberly Rodrigues DEPT: [facility] Surgical RECD BY: Renea Recinos ENTERED: 05/15/25 14:22 SP TYPE: Surgical OTHR DR: Ken Dumont DO Tissues: A - Nerve Bx Procedures: Gross and Microscopic Level 2
[2025-05-15 13:42] VITALS: BP 135/90; PULSE 56; RESP 16
[2025-05-15 14:15] VITALS: BP 104/70; PULSE 79; RESP 14; O2SAT 95
[2025-05-15 14:40] VITALS: BP 126/78; PULSE 67; RESP 16
== END 2025-05-15 14:54 | disposition home or self-care (01) ==
PROVIDERS: PCP Family Medicine; Visit Provider Plastic Surgery
PROC: 01N54ZZ Release Median Nerve, Percutaneous Endoscopic Approach (ICD-10-PCS; CPT 29848; principal; 2025-05-15 13:00)
DX: G56.02 Carpal tunnel syndrome, left upper limb (principal); G56.22 Lesion of ulnar nerve, left upper limb; I77.6 Arteritis, unspecified; M25.532 Pain in left wrist; Z87.891 Personal history of nicotine dependence
CPT/HCPCS: 29848; 64718; 64772; 88302; J0690; J0702; J2003; J2004; J2250; J2704; J7030; J7120